=== PATIENT | male | born 1970 | race African-American/Black ===

== ENCOUNTER 2016-12-30 21:16 | Emergency (ER) | payer OTHER ==
[~2016-12-30] VITALS: Ht 175.3 cm; Wt 108.2 kg
[2016-12-31] MEDS ORDERED: ZANAFLEX2 MG PO (00:09)
[2016-12-31] MEDS ORDERED: MEDROL DOSEPAK4 MG PO (00:09)
[2016-12-31 00:58] VITALS: BP 144/99
== END 2016-12-31 00:58 | disposition home or self-care (01) ==
LOC: EME 21:16
DX: S16.1XXA Strain of muscle, fascia and tendon at neck level, initial encounter (principal); R20.2 Paresthesia of skin; S50.02XA Contusion of left elbow, initial encounter; V49.40XA Driver injured in collision with unspecified motor vehicles in traffic accident, initial encounter
CPT/HCPCS: 72125; 73080; 99281; 99284; J7512

== ENCOUNTER 2017-04-20 10:07 | Emergency (ER) | payer OTHER ==
[~2017-04-20] VITALS: Ht 175.3 cm; Wt 109.1 kg
[~2017-04-20 10:07] MED LIST: MEDROL DOSEPAK4 MG PO; ZANAFLEX2 MG PO
[2017-04-20 11:16] LABS: POINT-OF-CARE METER ID UU13113778
[2017-04-20 11:56] LABS: ADD MIUA? YES; BILIRUBIN NEGATIVE; BLOOD NEGATIVE; COLOR YELLOW ((YELLOW)); GLUCOSE (STRIP) >=500; KETONES NEGATIVE; LEUKOCYTES NEGATIVE; NITRITE NEGATIVE; PROTEIN (STRIP) 100; SPECIFIC GRAVITY 1.031 (1.000-1.030)
[2017-04-20 12:00] LABS: BACTERIA NONE SEEN /HPF; EPITHELIAL CELLS RARE /HPF; MUCUS TRACE /LPF; RED BLOOD CELLS 0-5 /HPF (0-5); WHITE BLOOD CELLS 0-5 /HPF (0-5)
[2017-04-20 12:15] LABS: EOSINOPHIL (%) 2.2 % (0-5); EOSINOPHIL COUNT 0.1 K/uL (0-0.3); HEMATOCRIT 40.7 % (38.0-50.0); IMMATURE GRANULOCYTE (%) 0.4 % (0.0-0.7); INSTRUMENT ABS NEUTROPHIL CT 2.9 K/uL; MCH 27.6 PG (29.0-34.0); MCHC 33.7 G/DL (30.0-36.0); MCV 81.9 FL (86-99); MEAN PLAT.VOLUME 9.7 uM^3 (9.0-12.4); MONOCYTE (%) 8.7 % (3-12); MONOCYTE COUNT 0.5 K/uL (0-0.8); NEUTROPHIL (%) 52.3 % (45-76); NEUTROPHIL COUNT 2.9 K/uL (1.8-6.4); PLATELET COUNT 244 K/uL (156-360); RBC DIS.WIDTH-CV 12.4 % (11.8-14.6); RBC DIS.WIDTH-SD 37.2 % (39-53); RED BLOOD COUNT 4.97 M/uL (4.00-5.50); WHITE BLOOD COUNT 5.5 K/uL (4.1-10.2)
[2017-04-20 12:22] LABS: CHLORIDE 102 mEq/L (99-109); POTASSIUM 3.9 mEq/L (3.7-5.4); SODIUM 137 mEq/L (136-147)
[2017-04-20 12:24] LABS: GLUCOSE 268 mg/dL (70-99)
[2017-04-20 12:26] LABS: ANION GAP 11 MEQ/L (2-14)
[2017-04-20 12:28] LABS: GFR ESTIMATE (CALCULATED) > 59 mL/min/
[2017-04-20 12:29] LABS: UREA NITROGEN (BUN) 10 mg/dL (9-23)
[2017-04-20] MEDS ORDERED: PERCOCET 5/31 TABLET PO (13:20)
[2017-04-20 13:46] VITALS: BP 150/97
== END 2017-04-20 13:47 | disposition home or self-care (01) ==
LOC: EME 10:07
PROVIDERS: Emergency Medicine
DX: E11.65 Type 2 diabetes mellitus with hyperglycemia (principal); R10.9 Unspecified abdominal pain; I10 Essential (primary) hypertension
CPT/HCPCS: 74176; 80048; 81003; 82948; 85025; 99281; 99284; J7030